=== PATIENT | female | born 2000 | race Caucasian/White ===

== ENCOUNTER 2021-03-08 20:29 | Emergency (ER) | payer MEDICAID ==
--- NOTE | 2021-03-08 20:31 | ERPHSYRPT ---
- History of Present Illness Time Seen by Provider: 03/08/21 20:31 Source: patient
[2021-03-08 20:39] VITALS: BP 151/80; PULSE 89; O2SAT 98
[2021-03-08] MEDS ORDERED: Zofran 4 MG/2 ML VIAL IV ONE (21:01)
[2021-03-08] MEDS ORDERED: Sodium Chloride 0.9% 1000 ML 1,000 ML IV STA (21:01)
--- NOTE | 2021-03-08 21:01 | ERPHSYRPT ---
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 PT STATES SHE HAS SHARP STABBING CONSTANT PAIN 04/26 AND STATES SHE PASSED A LARGE CLOT TODAY. Triage Nursing Assessment: TO ER C/O ABD PAIN AND VAG BLEEDING WITH INCREASED TAMPON USE IN LAST DAY. PT P./W/D RESP EASY NON LABORED PT [id number] Physician History: This is a 20-year-old white female who was on oral contraceptive agents for both control and to help regulate her menstrual periods. However, the patient stopped her medication 2 months ago without the consent of her prescribing doctor. Patient was doing okay until today when she started her menstrual period per her thought. She was having some abdominal cramping primarily down in the suprapubic region with mild vaginal spotting. She then passed a clot and she has been bleeding significantly per her report since this afternoon. She is not dizzy. She is not short of breath. She has no chest pain. She has no nausea vomiting or diarrhea. She had no fever or chills. Patient states that she is and has been sexually active in the last 2 months despite being off her oral contraceptive agents. Orthostatic vital signs were performed upon arrival to the emergency department room and patient is not orthostatic. Timing/Duration: today Activities at Onset: none Quality: cramping Abdominal Pain Onset Location: suprapubic Pain Radiation: no radiation Severity of Pain-Max: mild Severity of Pain-Current: mild Modifying Factors: Improves With: nothing Associated Symptoms: other (Vaginal bleeding) Previous symptoms: no prior history Allergies/Adverse Reactions: No Known Drug Allergies Allergy (Unverified 03/08/21 20:39) Home Medications: Sertraline HCl 100 mg PO DAILY 03/08/21 [History] Topiramate 25 mg PO DAILY 03/08/21 [History] Travel Risk - International Travel Have you traveled outside of the country in past 3 weeks: No - Coronavirus Screening Are you exhibiting any of the following symptoms?: No Close contact with a COVID-19 positive Pt in past 14-21 Days: No - Vaccine Status Have you recieved a Covid-19 vaccination: No - Review of Systems Constitutional: No Symptoms Eyes: No Symptoms Ears, Nose, & Throat: No Symptoms Respiratory: No Symptoms Cardiac: No Symptoms Abdominal/Gastrointestinal: Abdominal Pain Genitourinary Symptoms: Vaginal Bleeding Musculoskeletal: No Symptoms Skin: No Symptoms Neurological: No Symptoms Psychological: No Symptoms Endocrine: No Symptoms Hematologic/Lymphatic: No Symptoms Immunological/Allergic: No Symptoms All Other Systems: Reviewed and Negative - Past Medical History Pertinent Past Medical History: Yes Respiratory History: Asthma Other Medical History: 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 - Past Surgical History Past Surgical History: Yes Other Surgical History: LEFT KNEE - Social History Smoking Status: Never smoker Drug Use: none - Female History Hx Last Menstrual Period: 03/05/21 Hx Now: No - Nursing Vital Signs Nursing Vital Signs: Initial Vital Signs Temperature 97.7 F 03/08/21 20:31 Pulse Rate 89 03/08/21 20:31 Respiratory Rate 16 03/08/21 20:31 Blood Pressure 151/80 03/08/21 20:31 O2 Sat by Pulse Oximetry 98 03/08/21 20:31 Pain Scale Pain Intensity 9 - Physical Exam General Appearance: no apparent distress, alert, anxiety Eye Exam: PERRL/EOMI, eyes nml inspection Ears, Nose, Throat Exam: normal ENT inspection, moist mucous membranes Neck Exam: normal inspection, non-tender, supple, full range of motion Respiratory Exam: normal breath sounds, lungs clear, airway intact, No chest tenderness, No respiratory distress Cardiovascular Exam: regular rate/rhythm, normal heart sounds, normal peripheral pulses Gastrointestinal/Abdomen Exam: soft, normal bowel sounds, No tenderness Pelvic Exam: not done Rectal Exam: not done Back Exam: normal inspection, normal range of motion, No CVA tenderness, No vertebral tenderness Extremity Exam: normal inspection, normal range of motion, pelvis stable Neurologic Exam: alert, oriented x 3, cooperative, program evaluator II-XII nml as tested, normal mood/affect, nml cerebellar function, nml station & gait, sensation nml Skin Exam: normal color, warm, dry Lymphatic Exam: No adenopathy SpO2 Interpretation: normal SpO2: 98 O2 Delivery: Room Air - Course Nursing assessment & vital signs reviewed: Yes Ordered Tests: Active Orders 24 hr Category Date Time Status IV Insertion STAT Care 03/08/21 21:01 Active ABDOMEN AND PELVIS W/0 CONTRAS [CT] Stat Exams 03/08/21 21:01 Taken AMYLASE Stat Lab 03/08/21 21:11 Completed CBC W DIFF Stat Lab 03/08/21 21:11 Completed CMP Stat Lab 03/08/21 21:11 Completed HCG,QUALITATIVE URINE Stat Lab 03/08/21 21:00 Completed LIPASE Stat Lab 03/08/21 21:11 Completed Lactic Acid Stat Lab 03/08/21 21:05 Completed UA W/RFX UR CULTURE Stat Lab 03/08/21 21:01 Completed Medication Summary Discontinued Medications Generic Name Dose Route Start Last Admin Trade Name Malena PRN Reason Stop Dose Admin Sodium Chloride 1,000 mls @ 999 mls/hr 03/08/21 21:01 03/08/21 21:08 Sodium Chloride 0.9% 1000 Ml IV 03/08/21 22:01 999 mls/hr .Q1H1M STA Administration Sodium Chloride Confirm 03/08/21 21:07 Sodium Chloride 0.9% 1000 Ml Administered 03/08/21 21:08 Dose 1,000 mls @ ud .ROUTE .STK-MED ONE Ondansetron HCl 4 mg 03/08/21 21:01 03/08/21 21:08 Zofran 4 Mg/2 Ml Vial IV 03/08/21 21:02 4 mg STAT ONE Administration Ondansetron HCl Confirm 03/08/21 21:07 Zofran 4 Mg/2 Ml Vial Administered 03/08/21 21:08 Dose 4 mg .ROUTE .STK-MED ONE Lab/Rad Data: Laboratory Result Diagrams 03/08/21 21:11 03/08/21 21:11 Laboratory Results 03/08/21 03/08/21 03/08/21 Range/Units 21:11 21:11 21:05 WBC 11.8 H (4.0-10.5) K/mm3 RBC 4.55 (4.1-5.4) M/mm3 Hgb 12.5 (12.0-16.0) gm/dl Hct 39.2 (35-47) % MCV 86.2 (78-100) fl MCH 27.5 (26-32) pg MCHC 31.9 L (32-36) g/dl RDW 13.6 (11.5-14.0) % Plt Count 260 (150-450) K/mm3 MPV 10.2 (7.5-11.0) fl Gran % 72.9 H (36.0-66.0) % Eos # (Auto) 0.09 (0-0.5) Absolute Lymphs (auto) 2.45 (1.0-4.6) Absolute Monos (auto) 0.65 (0.0-1.3) Lymphocytes % 20.7 L (24.0-44.0) % Monocytes % 5.5 (0.0-12.0) % Eosinophils % 0.8 (0.00-5.0) % Basophils % 0.1 (0.0-0.4) % Absolute Granulocytes 8.63 H (1.4-6.9) Basophils # 0.01 (0-0.4) Sodium 143 (137-145) mmol/L Potassium 3.7 (3.5-5.1) mmol/L Chloride 104 (98-107) mmol/L Carbon Dioxide 26 (22-30) mmol/L Anion Gap 16.3 H (5-15) MEQ/L BUN 19 H (7-17) mg/dL Creatinine 0.77 (0.52-1.04) mg/dL Estimated GFR > 60.0 ML/MIN Glucose 87 (74-106) mg/dL Lactic Acid 0.9 (0.4-2.0) Calcium 9.7 (8.4-10.2) mg/dL Total Bilirubin < 0.10 L (0.2-1.3) mg/dL AST 42 H (14-36) U/L ALT 66 H (0-35) U/L Alkaline Phosphatase 59 (38-126) U/L Serum Total Protein 7.9 (6.3-8.2) g/dL Albumin 4.8 (3.5-5.0) g/dL Amylase 57 (30-110) U/L Lipase 75 (23-300) U/L Urine Color (YELLOW) Urine Appearance (CLEAR) Urine pH (5-6) Ur Specific [place] (1.005-1.025) Urine Protein (Negative) Urine Ketones (NEGATIVE) Urine Blood (0-5) Olegario/ul Urine Nitrite (NEGATIVE) Urine Bilirubin (NEGATIVE) Urine Urobilinogen (0-1) mg/dL Ur Leukocyte Esterase (NEGATIVE) Urine WBC (Auto) (0-5) /HPF Urine RBC (Auto) (0-2) /HPF U Epithel Cells (Auto) (FEW) /HPF Urine Bacteria (Auto) (NEGATIVE) /HPF Urine Mucus (Auto) (NEGATIVE) /HPF Urine Culture Reflexed (NO) Urine Glucose (NEGATIVE) mg/dL Urine HCG, Qual (Negative) 03/08/21 03/08/21 Range/Units 21:01 21:00 WBC (4.0-10.5) K/mm3 RBC (4.1-5.4) M/mm3 Hgb (12.0-16.0) gm/dl Hct (35-47) % MCV (78-100) fl MCH (26-32) pg MCHC (32-36) g/dl RDW (11.5-14.0) % Plt Count (150-450) K/mm3 MPV (7.5-11.0) fl Gran % (36.0-66.0) % Eos # (Auto) (0-0.5) Absolute Lymphs (auto) (1.0-4.6) Absolute Monos (auto) (0.0-1.3) Lymphocytes % (24.0-44.0) % Monocytes % (0.0-12.0) % Eosinophils % (0.00-5.0) % Basophils % (0.0-0.4) % Absolute Granulocytes (1.4-6.9) Basophils # (0-0.4) Sodium (137-145) mmol/L Potassium (3.5-5.1) mmol/L Chloride (98-107) mmol/L Carbon Dioxide (22-30) mmol/L Anion Gap (5-15) MEQ/L BUN (7-17) mg/dL Creatinine (0.52-1.04) mg/dL Estimated GFR ML/MIN Glucose (74-106) mg/dL Lactic Acid (0.4-2.0) Calcium (8.4-10.2) mg/dL Total Bilirubin (0.2-1.3) mg/dL AST (14-36) U/L ALT (0-35) U/L Alkaline Phosphatase (38-126) U/L Serum Total Protein (6.3-8.2) g/dL Albumin (3.5-5.0) g/dL Amylase (30-110) U/L Lipase (23-300) U/L Urine Color YELLOW (YELLOW) Urine Appearance CLEAR (CLEAR) Urine pH 5.0 (5-6) Ur Specific [place] 1.030 (1.005-1.025) Urine Protein NEGATIVE (Negative) Urine Ketones NEGATIVE (NEGATIVE) Urine Blood NEGATIVE (0-5) Olegario/ul Urine Nitrite NEGATIVE (NEGATIVE) Urine Bilirubin NEGATIVE (NEGATIVE) Urine Urobilinogen NEGATIVE (0-1) mg/dL Ur Leukocyte Esterase NEGATIVE (NEGATIVE) Urine WBC (Auto) NONE (0-5) /HPF Urine RBC (Auto) NONE (0-2) /HPF U Epithel Cells (Auto) NONE (FEW) /HPF Urine Bacteria (Auto) NONE (NEGATIVE) /HPF Urine Mucus (Auto) SLIGHT (NEGATIVE) /HPF Urine Culture Reflexed NO (NO) Urine Glucose NEGATIVE (NEGATIVE) mg/dL Urine HCG, Qual NEGATIVE (Negative) - Progress Progress: improved Progress Note: 03/08/21 22:34 CAT scan of the abdomen pelvis without contrast shows no evidence of acute intra-abdominal or pelvic pathology. Medical decision making: This patient has cramping suprapubic abdominal pain. She does not have a urinary tract infection. Her hemoglobin is stable as are her vital signs. She has vaginal bleeding. She may have started her menstrual period and she is off of her hormone therapy that she stopped on her own 2 months ago. We will discharge her to home. She is instructed to follow-up with her primary care provider and her rn hemodialysis if she has 1. She is to return to the emergency department if she has continued bleeding and is symptomatic with shortness of breath or dizziness symptoms. Counseled pt/family regarding: lab results, diagnosis, need for follow-up, rad results - Departure Departure Disposition: Home Clinical Impression: Abdominal pain, Vaginal bleeding, Vaginal bleeding Condition: Stable Critical Care Time: No Referrals: TOMEKA MIKE NP [Primary Care Provider] - Additional Instructions: Drink plenty of fluids. Call your primary care physician and rn hemodialysis on 03/11/2021 for further management. Return to the emergency department if you are having persistent, significant bleeding and symptoms including dizziness, shortness of breath and weakness.
[2021-03-08] MEDS ORDERED: Zofran 4 MG/2 ML VIAL ONE (21:07)
[2021-03-08] MEDS ORDERED: Sodium Chloride 0.9% 1000 ML 1,000 ML ONE (21:07)
[2021-03-08 21:15] LABS: Absolute Neutrophil Ct (ANC) 8.63 (1.4-6.9); BASOPHIL % 0.1 % (0.0-0.4); Basophil (Absolute #) 0.01 (0-0.4); Eosinophil % 0.8 % (0.00-5.0); Eosinophil (Absolute #) 0.09 (0-0.5); Hematocrit 39.2 % (35-47); Hemoglobin 12.5 gm/dl (12.0-16.0); Lymphocyte (Absolute #) 2.45 (1.0-4.6); Lymphocytes % 20.7 % (24.0-44.0); Mean Cell Volume 86.2 fl (78-100); Mean Corpuscular Hemoglobin 27.5 pg (26-32); Mean Corpuscular Hgb Concent. 31.9 g/dl (32-36); Mean Platelet Volume 10.2 fl (7.5-11.0); Monocyte (Absolute #) 0.65 (0.0-1.3); Monocytes % 5.5 % (0.0-12.0); Neutrophil % 72.9 % (36.0-66.0); Platelet Count 260 K/mm3 (150-450); Red Blood Count 4.55 M/mm3 (4.1-5.4); Red Cell Distribution Width 13.6 % (11.5-14.0); White Blood Count 11.8 K/mm3 (4.0-10.5)
[2021-03-08 21:23] LABS: Appearance CLEAR (CLEAR); Bilirubin NEGATIVE (NEGATIVE); Blood NEGATIVE Ery/ul (0-5); Glucose NEGATIVE (NEGATIVE); Ketones NEGATIVE (NEGATIVE); Leukocyte Esterase NEGATIVE (NEGATIVE); Mucus SLIGHT /HPF (NEGATIVE); Nitrite NEGATIVE (NEGATIVE); Protein,Urine Dip NEGATIVE (Negative); Urobilinogen NEGATIVE mg/dL (0-1)
[2021-03-08 21:28] LABS: ALBUMIN 4.8 g/dL (3.5-5.0); ALKALINE PHOSPHATASE 59 U/L (38-126); AMYLASE 57 U/L (30-110); ANION GAP 16.3 MEQ/L (5-15); BILIRUBIN,TOTAL < 0.10 mg/dL (0.2-1.3); BLOOD UREA NITROGEN 19 mg/dL (7-17); CHLORIDE 104 mmol/L (98-107); Calcium 9.7 mg/dL (8.4-10.2); Carbon Dioxide 26 mmol/L (22-30); Creatinine 1 0.77 mg/dL (0.52-1.04); EST GLOMERULAR FILTRATION RATE > 60.0 ML/MIN; Glucose 87 mg/dL (74-106); LIPASE 75 U/L (23-300); Potassium 3.7 mmol/L (3.5-5.1); SGOT/AST 42 U/L (14-36); SGPT/ALT 66 U/L (0-35); SODIUM 143 mmol/L (137-145); Total Protein 7.9 g/dL (6.3-8.2)
--- NOTE | 2021-03-09 07:52 | XRAY ---
Indication: Lower abdomen pain. Current menses. Multiple contiguous axial images obtained through the abdomen and pelvis without contrast. Comparison: None Lung bases are clear. Heart not enlarged. Noncontrasted stomach and bowel loops appear nonobstructed. Normal appendix. No free fluid/air. There is a tampon in situ. Remaining liver, gallbladder, pancreas, spleen, adrenal glands, kidneys, ureters, bladder, and aorta appear unremarkable for noncontrast exam. Osseous structures intact. No ventral or inguinal hernias. Impression: CT abdomen/pelvis without contrast exam is negative. Comment: Preliminary interpretation made by [facility]. No critical discrepancy.
== END 2021-03-08 22:50 | disposition home or self-care (01) ==
LOC: ED 20:29
DX: R10.9 Unspecified abdominal pain (principal); N93.9 Abnormal uterine and vaginal bleeding, unspecified
CPT/HCPCS: 36000; 36415; 74176; 80053; 81001; 82150; 83605; 83690; 84703; 85025; 96374; 99284; J2405